=== PATIENT | male | born 1945 | race African-American/Black ===

== ENCOUNTER → 2016-10-25 | Outpatient (CLI) | payer BC | END | disposition home or self-care (01) | DX: R13.10 Dysphagia, unspecified (principal); K21.9 Gastro-esophageal reflux disease without esophagitis; R07.9 Chest pain, unspecified | CPT/HCPCS: 92611 GN ==

== ENCOUNTER 2016-12-17 01:28 | Emergency (ER) | payer BC ==
[~2016-12-17] VITALS: Ht 167.6 cm; Wt 78.9 kg
[2016-12-17 02:28] LABS: HEMATOCRIT 34.6 % (38.0-50.0); MCH 29.8 PG (29.0-34.0); MCHC 34.4 G/DL (30.0-36.0); MCV 86.5 FL (86-99); MEAN PLAT.VOLUME 8.8 uM^3 (9.0-12.4); PLATELET COUNT 255 K/uL (156-360); RBC DIS.WIDTH-CV 12.4 % (11.8-14.6); RBC DIS.WIDTH-SD 39.5 % (39-53)
[2016-12-17 02:31] LABS: WHITE BLOOD COUNT 6.1 K/uL (4.1-10.2)
[2016-12-17 02:38] LABS: CHLORIDE 108 mEq/L (99-109); POTASSIUM 4.5 mEq/L (3.7-5.4); SODIUM 142 mEq/L (136-147)
[2016-12-17 02:39] LABS: GLUCOSE 91 mg/dL (70-99)
[2016-12-17 02:41] LABS: ANION GAP 11 MEQ/L (2-14)
[2016-12-17 02:43] LABS: GFR ESTIMATE (CALCULATED) > 59 mL/min/
[2016-12-17 02:44] LABS: UREA NITROGEN (BUN) 12 mg/dL (9-23)
[2016-12-17 03:19] LABS: ADD MIUA? YES; BILIRUBIN NEGATIVE; BLOOD LARGE; COLOR YELLOW ((YELLOW)); GLUCOSE (STRIP) NEGATIVE; KETONES NEGATIVE; LEUKOCYTES NEGATIVE; NITRITE NEGATIVE; PROTEIN (STRIP) 30; SPECIFIC GRAVITY 1.008 (1.000-1.030); UROBILINOGEN 0.2 MG/DL (0.2-1.0)
[2016-12-17 03:43] LABS: BACTERIA NONE SEEN /HPF; EPITHELIAL CELLS NONE SEEN /HPF; MUCUS TRACE /LPF; RED BLOOD CELLS TNTC /HPF (0-5); UCUL ADDED? NO; WHITE BLOOD CELLS 0-5 /HPF (0-5)
[2016-12-17 03:56] VITALS: BP 138/75
== END 2016-12-17 04:00 | disposition home or self-care (01) ==
LOC: EME 01:28
PROVIDERS: Emergency Medicine
DX: T83.098A Other mechanical complication of other urinary catheter, initial encounter (principal); R31.9 Hematuria, unspecified; Z96.0 Presence of urogenital implants; Z85.46 Personal history of malignant neoplasm of prostate; Z88.2 Allergy status to sulfonamides
CPT/HCPCS: 80048; 81003; 85027; 99281; 99283